=== PATIENT | female | born 1995 | race Caucasian/White ===

== ENCOUNTER 2017-11-26 15:15 | Observation (INO) | payer MEDICAID ==
[2017-12-07] MEDS ORDERED: PRENCAP61 OR (02:59)
== END 2017-11-26 16:40 | disposition home or self-care (01) | DRG 566 ==
LOC: MERGE 15:15 → LDRP 15:15
PROVIDERS: ADMIT Obstetrics & Gynecology; ATTEND Obstetrics & Gynecology
DX: O62.9 Abnormality of forces of labor, unspecified (principal); O26.893 Other specified pregnancy related conditions, third trimester; R51 Headache; Z3A.38 38 weeks gestation of pregnancy
CPT/HCPCS: 59025; 81002; G0378

== ENCOUNTER 2017-11-28 00:56 | Observation (INO) | payer MEDICAID ==
[2017-12-07] MEDS ORDERED: PRENCAP61 OR (02:59)
== END 2017-11-28 02:21 | disposition home or self-care (01) | DRG 566 ==
LOC: MERGE 00:56 → LDRP 00:56
PROVIDERS: ADMIT Specialist; ATTEND Specialist
DX: O62.9 Abnormality of forces of labor, unspecified (principal); Z3A.38 38 weeks gestation of pregnancy
CPT/HCPCS: 59025; 81002; G0378

== ENCOUNTER 2017-12-06 22:28 | Observation (INO) | payer SELFPAY ==
[2017-12-07] MEDS ORDERED: PRENCAP61 OR (02:59)
== END 2017-12-06 23:36 | disposition home or self-care (01) | DRG 781 ==
LOC: LDRP 22:28
PROVIDERS: ADMIT Specialist; ATTEND Specialist
DX: O62.9 Abnormality of forces of labor, unspecified (principal); O21.2 Late vomiting of pregnancy; Z3A.39 39 weeks gestation of pregnancy
CPT/HCPCS: 59025; 76818; 81002; G0378